=== PATIENT | male | born 1960 | race Caucasian/White ===

== ENCOUNTER 2019-01-27 09:06 | Emergency (ER) | payer OTHER ==
[~2019-01-27] VITALS: Ht 177.8 cm; Wt 91.0 kg
[2019-01-27] MEDS ORDERED: CYCLOBENZAPR5 MG PO (09:47)
[2019-01-27] MEDS ORDERED: MOTRIN400 MG PO (09:47)
[2019-01-27] MEDS ORDERED: LOPID600 MG PO (09:55)
[2019-01-27] MEDS ORDERED: OZEMPIC2 MG/1.5 M IJ (09:56)
[2019-01-27] MEDS ORDERED: EDARBYCLOR1 TA1 PO (09:56)
[2019-01-27] MEDS ORDERED: CRESTOR10 MG PO (09:56)
[2019-01-27] MEDS ORDERED: ALPRAZOLAM0.5 M2 PO (09:57)
[2019-01-27] MEDS ORDERED: CARVEDILOL12.5 MG PO (09:57)
[2019-01-27] MEDS ORDERED: METFORMIN500 M2 PO (09:57)
[2019-01-27] MEDS ORDERED: METFORMIN HCL500 M1 PO (09:58)
[2019-01-27 10:00] VITALS: BP 129/74
== END 2019-01-27 10:00 | disposition home or self-care (01) | DRG 552 ==
LOC: ED 09:06
DX: M54.42 Lumbago with sciatica, left side (principal); M79.2 Neuralgia and neuritis, unspecified; X50.0XXA Overexertion from strenuous movement or load, initial encounter; Y92.89 Other specified places as the place of occurrence of the external cause